=== PATIENT | female | born 2000 | race Two or more races ===

== ENCOUNTER 2018-04-01 14:26 | Emergency (ER) | payer BC ==
--- NOTE | 2018-04-01 14:53 | EDPHY ---
H & P Stated Complaint: dizzy, lightheaded Time Seen by Provider: 04/01/18 14:53 HPI/ROS: HPI CHIEF COMPLAINT: Abdominal pain, lightheadedness HISTORY OF PRESENT ILLNESS: Patient is a 18-year-old female she presents emergency room for lightheadedness and abdominal pain. The patient reports that she just started her menstrual cycle and that she has regular menstrual cycles and it was last month on the 8th. She states that she developed a lower abdominal pain with pelvic cramping. Rather severe. Light menstruation. The pelvic pain was so severe she felt like she was going to pass out she was studying at the library and had to lay out on the ground. She states that her hands started getting numb and felt very lightheaded and sweaty she asked for help and they called 911. She was brought here by ambulance. She is feeling much better. Denies any chest pain or shortness of breath. She did not have a syncopal episode. Past Medical History: Denies medical history Past Surgical History: Denies surgical history Social History: [employer] student, denies daily use of drugs alcohol tobacco. Family History: Noncontributory ROS REVIEW OF SYSTEMS: A comprehensive 10 point review of systems is otherwise negative aside from elements mentioned in the history of present illness. Exam Constitutional appears well nontoxic triage nursing summary reviewed, vital signs reviewed, awake/alert. Eyes normal conjunctivae and sclera, EOMI, PERRLA. HENT normal inspection, atraumatic, moist mucus membranes, no epistaxis, neck supple/ no meningismus, no raccoon eyes. Respiratory clear to auscultation bilaterally, normal breath sounds, no respiratory distress, no wheezing. Cardiovascular rate normal, regular rhythm, no murmur, no edema, distal pulses normal. Gastrointestinal soft, non-tender, no rebound, no guarding, normal bowel sounds, no distension, no pulsatile mass. Genitourinary no CVA tenderness. Musculoskeletal no midline vertebral tenderness, full range of motion, no calf swelling, no tenderness of extremities, no meningismus, good pulses, neurovascularly intact. Skin pink, warm, & dry, no rash, skin atraumatic. Neurologic awake, alert and oriented x 3, AAOx3, moves all 4 extremities equally, motor intact, sensory intact, CN II-XII intact, normal cerebellar, normal vision, normal speech. Psychiatric normal mood/affect. Heme/Lymph/Immune no lymphadenopathy. Differential Diagnosis: Differential diagnosis includes but is not limited to and in no particular order: Bowel obstruction, appendicitis, gallbladder disease, diverticulitis, colitis, enteritis, perforated viscus, gastritis, GERD , esophagitis, urinary tract infection, pyelonephritis, kidney stones Medical Decision Making: Plan for this patient IV establishment IV fluid bolus , check basic labs, ultrasound pelvic ultrasound for evaluation of severe pelvic pain including ovaries. Check EKG. Re-evaluate. Re-evaluation: EKG interpretation by me on record in [employer] system. Impression time of EKG 1508 sinus rhythm rate of 58, borderline T-wave abnormality lead 3 AVF and V3. Otherwise unremarkable EKG. No signs of acute ischemia. No signs of cardiac arrhythmia. Ultrasound reviewed. Concerning for teratoma. No evidence of torsion. Will consult OBGYN. Spoke with Dr. Concepcion painter. 1628: Spoke with OBGYN Dr. Concepcion Larose, reviewed the case and ultrasound. Recommends outpatient follow-up for this possible dermoid cyst. Patient re-evaluated this time 1628: Resting comfortably no acute distress. Abdominal pain has resolved. She feels well. Her blood work and urine have been reviewed. Ultrasound shows a dermoid cyst on the right ovary. No evidence of torsion. Recommend close follow up with OBGYN. Return precautions discussed with her understands return emergency room if there is worsening pain fever vomiting. Source: Patient - Personal History LMP (Females 10-55): Now Current Tetanus/Diphtheria Vaccine: Yes Current Tetanus Diphtheria and Acellular Pertussis (TDAP): Yes - Medical/Surgical History Hx Asthma: No Hx Chronic Respiratory Disease: No Hx Diabetes: No Hx Cardiac Disease: No Hx Renal Disease: No Hx Cirrhosis: No Hx Alcoholism: No Hx HIV/AIDS: No Hx Splenectomy or Spleen Trauma: No Other PMH: denies - Social History Smoking Status: Never smoked Constitutional: Initial Vital Signs Temperature (C) 36.4 C 04/01/18 14:44 Heart Rate 51 L 04/01/18 14:44 Respiratory Rate 16 04/01/18 14:44 Blood Pressure 117/80 04/01/18 14:44 O2 Sat (%) 99 04/01/18 14:44 O2 Delivery Mode Room Air Allergies/Adverse Reactions: No Known Allergies Allergy (Unverified 04/01/18 14:44) Home Medications: Medication Instructions Recorded Aleve 04/01/18 Ibuprofen [Motrin (*)] 800 mg PO Q6-8PRN #10 tab 04/01/18 Medical Decision Making - Diagnostics Imaging Results: Imaging Impressions Pelvic/Renal Ultrasound 04/01/18 14:57 Impression: 1. 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 No evidence of associated rupture or torsion. Less likely differential considerations include hemorrhagic cyst and endometrioma. The detection of macroscopic fat by CT or MRI would be definitive for teratoma diagnosis. 2. Sonographically normal uterus and left ovary. - Data Points Laboratory Results: Laboratory Results 04/01/18 14:20 04/01/18 14:20 04/01/18 04/01/18 04/01/18 16:10 14:20 14:20 WBC RBC Hgb Hct MCV MCH MCHC RDW Plt Count MPV Neut % (Auto) Lymph % (Auto) [place] % (Auto) Eos % (Auto) Baso % (Auto) Nucleat RBC Rel Count Absolute Neuts (auto) Absolute Lymphs (auto) Absolute Monos (auto) Absolute Eos (auto) Absolute Basos (auto) Absolute Nucleated RBC Immature Gran % Immature Gran # Sodium 143 mEq/L mEq/L (135-145) Potassium 3.1 mEq/L L mEq/L (3.5-5.2) Chloride 104 mEq/L mEq/L (97-110) Carbon Dioxide 21 mEq/l L mEq/l (22-31) Anion Gap 18 mEq/L H mEq/L (8-16) BUN 9 mg/dL mg/dL (7-23) Creatinine 0.8 mg/dL mg/dL (0.6-1.0) Estimated GFR > 60 Glucose 120 mg/dL H mg/dL (70-100) Calcium 9.5 mg/dL mg/dL (8.5-10.4) Total Bilirubin 0.9 mg/dL mg/dL (0.1-1.4) Conjugated Bilirubin 0.4 mg/dL mg/dL (0.0-0.5) Unconjugated Bilirubin 0.5 mg/dL mg/dL (0.0-1.1) AST 22 IU/L IU/L (14-46) ALT 31 IU/L IU/L (9-52) Alkaline Phosphatase 61 IU/L IU/L (38-126) Total Protein 7.3 g/dL g/dL (6.3-8.2) Albumin 4.6 g/dL g/dL (3.5-5.0) Lipase 86 IU/L IU/L (23-300) Beta HCG, Qual NEGATIVE Urine Color Pending Urine Appearance Pending Urine pH Pending Ur Specific [place] Pending Urine Protein Pending Urine Ketones Pending Urine Blood Pending Urine Nitrate Pending Urine Bilirubin Pending Urine Urobilinogen Pending Ur Leukocyte Esterase Pending Urine Glucose Pending 04/01/18 14:20 WBC 7.29 10^3/uL 10^3/uL (3.80-9.50) RBC 4.71 10^6/uL 10^6/uL (4.18-5.33) Hgb 15.0 g/dL g/dL (12.6-16.3) Hct 41.8 % % (38.0-47.0) MCV 88.7 fL fL (81.5-99.8) MCH 31.8 pg pg (27.9-34.1) MCHC 35.9 g/dL g/dL (32.4-36.7) RDW 11.8 % % (11.5-15.2) Plt Count 271 10^3/uL 10^3/uL (150-400) MPV 10.1 fL fL (8.7-11.7) Neut % (Auto) 51.0 % % (39.3-74.2) Lymph % (Auto) 39.8 % % (15.0-45.0) [place] % (Auto) 7.7 % % (4.5-13.0) Eos % (Auto) 0.7 % % (0.6-7.6) Baso % (Auto) 0.7 % % (0.3-1.7) Nucleat RBC Rel Count 0.0 % % (0.0-0.2) Absolute Neuts (auto) 3.72 10^3/uL 10^3/uL (1.70-6.50) Absolute Lymphs (auto) 2.90 10^3/uL 10^3/uL (1.00-3.00) Absolute Monos (auto) 0.56 10^3/uL 10^3/uL (0.30-0.80) Absolute Eos (auto) 0.05 10^3/uL 10^3/uL (0.03-0.40) Absolute Basos (auto) 0.05 10^3/uL 10^3/uL (0.02-0.10) Absolute Nucleated RBC 0.00 10^3/uL 10^3/uL (0-0.01) Immature Gran % 0.1 % % (0.0-1.1) Immature Gran # 0.01 10^3/uL 10^3/uL (0.00-0.10) Sodium Potassium Chloride Carbon Dioxide Anion Gap BUN Creatinine Estimated GFR Glucose Calcium Total Bilirubin Conjugated Bilirubin Unconjugated Bilirubin AST ALT Alkaline Phosphatase Total Protein Albumin Lipase Beta HCG, Qual Urine Color Urine Appearance Urine pH Ur Specific [place] Urine Protein Urine Ketones Urine Blood Urine Nitrate Urine Bilirubin Urine Urobilinogen Ur Leukocyte Esterase Urine Glucose Medications Given: Discontinued Medications Sodium Chloride (Ns) 1,000 mls @ 0 mls/hr IV EDNOW ONE; Wide Open PRN Reason: Protocol Stop: 04/01/18 14:58 Last Admin: 04/01/18 15:03 Dose: 1,000 mls Potassium Chloride (Potassium Chloride Oral Liquid) 40 meq PO EDNOW ONE Stop: 04/01/18 15:23 Last Admin: 04/01/18 15:30 Dose: 40 meq Departure - Departure Disposition: Home, Routine, Self-Care Clinical Impression: Abdominal pain Qualifiers: Abdominal location: lower abdomen, unspecified Qualified Code(s): R10.30 - Lower abdominal pain, unspecified Ovarian cyst Qualifiers: Laterality: right Qualified Code(s): N83.201 - Unspecified ovarian cyst, right side Condition: Good Instructions: Pelvic Pain in Women (ED), Ovarian Cyst (ED) Additional Instructions: 1. Recommend he stay well-hydrated drink lots of fluids. 2. You may alternate Tylenol or Motrin for pain control. 3. Return emergency room if you have worsening abdominal pain fever vomiting or passing out. 4. You need to follow up with OBGYN about the cyst on her right ovary. She did this in the next 2 weeks. Referrals: Patient,NotPresent [Unknown] - As per Instructions Concepcion Larose MD [Medical Doctor] - As per Instructions Prescriptions: Ibuprofen [Motrin (*)] 800 mg PO Q6-8PRN #10 tab
[2018-04-01] MEDS ORDERED: NS 1,000 ML IV ONE (14:57)
[2018-04-01 15:04] LABS: PLATELET COUNT 271 10^3/uL (150-400)
--- NOTE | 2018-04-01 15:09 | CPEKG ---
Heart Rate: 58 RR Interval: 1034 P-R Interval: 144 QRSD Interval: 84 QT Interval: 420 QTC Interval: 413 P [place]: 71 QRS [place]: 61 T Wave [place]: -23 EKG Severity - BORDERLINE ECG - EKG Impression: SINUS RHYTHM EKG Impression: BORDERLINE T ABNORMALITIES, DIFFUSE LEADS Electronically Signed By: Carlos Willoughby 01-Apr-2018 23:44:44
[2018-04-01] MEDS ORDERED: POTASSIUM CL 20 MEQ/15 ML UDCUP PO ONE (15:22)
[2018-04-01 17:15] VITALS: BP 95/79
== END 2018-04-01 17:14 | disposition home or self-care (01) ==
DX: N83.201 Unspecified ovarian cyst, right side (principal); E86.9 Volume depletion, unspecified